=== PATIENT | female | born 1990 ===

== ENCOUNTER 2023-11-15 17:18 | Outpatient (RCR) | payer OTHER, SELFPAY | END 2023-11-15 23:59 | disposition home or self-care (01) | LOC: RPT 17:18 | PROVIDERS: ATTENDING PHYSICIAN Nurse Practitioner Women's Health | DX: M62.9 Disorder of muscle, unspecified (principal); R10.2 Pelvic and perineal pain; N94.10 Unspecified dyspareunia | CPT/HCPCS: 97140; 97162; 97530 ==